=== PATIENT | male | born 1960 | race Native Hawaiian/Other Pacific Islander ===

== ENCOUNTER 2019-09-08 06:00 | Outpatient (RCR) | payer OTHER, SELFPAY | END 2019-10-08 23:59 | disposition home or self-care (01) | LOC: GPT 06:00 | PROVIDERS: PCP Internal Medicine; Referring Provider Internal Medicine; Visit Provider Internal Medicine | DX: Z47.89 Encounter for other orthopedic aftercare (principal) | CPT/HCPCS: 97110; 97140; G0283 ==

== ENCOUNTER 2019-10-09 06:00 | Outpatient (RCR) | payer OTHER, SELFPAY | END 2019-11-06 23:59 | disposition home or self-care (01) | LOC: GPT 06:00 | PROVIDERS: PCP Internal Medicine; Referring Provider Internal Medicine; Visit Provider Internal Medicine | DX: Z47.89 Encounter for other orthopedic aftercare (principal) | CPT/HCPCS: 97110; 97140; 97164; 97530; G0283 ==

== ENCOUNTER 2019-11-07 06:00 | Outpatient (RCR) | payer OTHER, SELFPAY | END 2019-12-07 23:59 | disposition home or self-care (01) | LOC: GPT 06:00 | PROVIDERS: PCP Internal Medicine; Referring Provider Internal Medicine; Visit Provider Internal Medicine | DX: Z47.89 Encounter for other orthopedic aftercare (principal) | CPT/HCPCS: 97110; 97140; G0283 ==

== ENCOUNTER 2019-12-08 06:00 | Outpatient (RCR) | payer OTHER, SELFPAY | END 2020-01-06 23:59 | disposition home or self-care (01) | LOC: GPT 06:00 | PROVIDERS: PCP Internal Medicine; Referring Provider Internal Medicine; Visit Provider Internal Medicine | DX: M25.611 Stiffness of right shoulder, not elsewhere classified (principal) | CPT/HCPCS: 97110; 97164; 97530; G0283 ==